=== PATIENT | female | born 1960 | race American Indian/Alaskan Native ===

== ENCOUNTER 2017-01-29 15:58 | Outpatient (CLI) | payer OTHER | END 2017-01-29 15:59 | disposition home or self-care (01) | LOC: LABHHL 15:58 | PROVIDERS: ATTEND Specialist | DX: N63 Unspecified lump in breast (principal) | CPT/HCPCS: 88305 ==

== ENCOUNTER 2017-04-29 14:49 | Outpatient (CLI) | payer OTHER | END 2017-04-29 14:50 | disposition home or self-care (01) | LOC: LABHHL 14:49 | PROVIDERS: ATTEND Specialist | DX: N60.01 Solitary cyst of right breast (principal) | CPT/HCPCS: 88112 ==